=== PATIENT | male | born 1995 | race Two or more races ===

== ENCOUNTER 2020-04-23 20:14 | Emergency (ER) | payer MEDICAID ==
[~2020-04-23] VITALS: Ht 182.9 cm; Wt 61.2 kg
[2020-04-23 20:38] VITALS: BP 129/72
== END 2020-04-23 23:36 | disposition home or self-care (01) ==
LOC: ER 20:16
DX: J06.9 Acute upper respiratory infection, unspecified (principal); Z20.828 Contact with and (suspected) exposure to other viral communicable diseases
CPT/HCPCS: 36415; 71045; 87426; 99284; U0003